=== PATIENT | male | born 1940 | race Caucasian/White ===

== ENCOUNTER → 2017-10-18 | Outpatient (CLI) | payer MEDICARE, BC ==
[~2017-10-18] MED LIST: Kristalose20 GM PO; LEVSOD125
[2017-10-18 17:13] LABS: BASOPHILS ABSOLUTE AUTO 0.03 K/mm3 (0.00-0.23); BASOPHILS PERCENT AUTO 0 % (0-2); EOSINOPHILS ABSOLUTE AUTO 0.03 K/mm3 (0.00-0.68); EOSINOPHILS PERCENT AUTO 0 % (0-6); Hematocrit 35.7 % (37.0-53.0); Hemoglobin 11.9 g/dL (13.5-17.5); IMMATURE GRAN ABSOLUTE AUTO 0.05 K/mm3 (0.00-0.10); IMMATURE GRAN PERCENT AUTO 0 % (0-1); LYMPHOCYTES ABSOLUTE AUTO 0.66 K/mm3 (0.84-5.20); LYMPHOCYTES PERCENT AUTO 4 % (21-46); MONOCYTES ABSOLUTE AUTO 0.94 K/mm3 (0.16-1.47); MONOCYTES PERCENT AUTO 6 % (4-13); Mean Corpuscular HGB 29.9 pg (26.0-34.0); Mean Corpuscular HGB Conc 33.3 g/dL (31.5-36.5); Mean Corpuscular Volume 90 fL (80-100); Mean Platelet Volume 10.3 fL (9.1-12.4); NEUTROPHILS ABSOLUTE AUTO 13.35 K/mm3 (1.96-9.15); NEUTROPHILS PERCENT AUTO 89 % (41-73); Platelet Count 229 K/mm3 (150-400); RDW Coefficient Variation 15.3 % (11.7-14.2); Red Blood Cell Count 3.98 M/mm3 (4.30-5.90); White Blood Cell Count 15.06 K/mm3 (4.00-11.30)
[2017-10-18 17:23] LABS: Albumin, Blood 3.9 g/dL (3.4-5.0); Bilirubin, Total 0.4 mg/dL (0.1-1.0); Calcium, Blood 8.7 mg/dL (8.5-10.1); Creatinine, Blood 1.22 mg/dL (0.60-1.20); Potassium, Blood 4.7 mmol/L (3.5-5.5); Total Protein, Blood 7.9 g/dL (6.4-8.2)
== END ==
LOC: LAB SHORT 17:08 → LAB EV 17:08
PROVIDERS: Physician Assistant
DX: K59.00 Constipation, unspecified (principal)
CPT/HCPCS: 80053; 85025

== ENCOUNTER 2017-10-22 09:01 | Emergency (ER) | payer MEDICARE, BC ==
[~2017-10-22] VITALS: Ht 177.8 cm; Wt 76.2 kg
[2017-10-22] MEDS ORDERED: LEVSOD125 (09:30)
[2017-10-22] MEDS ORDERED: Kristalose20 GM PO (09:56)
== END 2017-10-22 10:25 | disposition home or self-care (01) ==
LOC: ER 09:01
DX: K59.00 Constipation, unspecified (principal); Z79.899 Other long term (current) drug therapy; F41.9 Anxiety disorder, unspecified
CPT/HCPCS: 74018

== ENCOUNTER 2022-02-07 16:28 | Emergency (ER) | payer MEDICARE, BC ==
[~2022-02-07] VITALS: Ht 177.8 cm; Wt 77.1 kg
[2022-02-07] MEDS ORDERED: CYTOMEL25 MC2 PO (18:48)
== END 2022-02-07 20:14 | disposition home or self-care (01) ==
LOC: ER 16:28
DX: M25.552 Pain in left hip (principal); Z79.899 Other long term (current) drug therapy
CPT/HCPCS: 96372; 99282; J1885

== ENCOUNTER → 2022-02-18 | Outpatient (CLI) | payer MEDICARE, BC ==
[~2022-02-18] MED LIST changes: +CYTOMEL25 MC2 PO
[2022-02-18 16:24] LABS: BASOPHILS ABSOLUTE AUTO 0.02 K/mm3 (0.00-0.23); BASOPHILS PERCENT AUTO 0 % (0-2); EOSINOPHILS ABSOLUTE AUTO 0.04 K/mm3 (0.00-0.68); EOSINOPHILS PERCENT AUTO 1 % (0-6); Hematocrit 31.6 % (37.0-53.0); IMMATURE GRAN ABSOLUTE AUTO 0.01 K/mm3 (0.00-0.10); IMMATURE GRAN PERCENT AUTO 0 % (0-1); LYMPHOCYTES PERCENT AUTO 11 % (21-46); MONOCYTES ABSOLUTE AUTO 0.86 K/mm3 (0.16-1.47); MONOCYTES PERCENT AUTO 16 % (4-13); Mean Corpuscular HGB 31.5 pg (26.0-34.0); Mean Corpuscular HGB Conc 34.8 g/dL (31.5-36.5); Mean Corpuscular Volume 91 fL (80-100); Mean Platelet Volume 9.5 fL (9.1-12.4); NEUTROPHILS PERCENT AUTO 72 % (41-73); Platelet Count 276 K/mm3 (150-400); RDW Coefficient Variation 14.9 % (11.7-14.2); RDW Standard Deviation 49.3 fL (35.1-46.3); Red Blood Cell Count 3.49 M/mm3 (4.30-5.90); White Blood Cell Count 5.43 K/mm3 (4.00-11.30)
[2022-02-18 16:43] LABS: Albumin/Globulin Ratio 1.2 (0.8-1.8); Bilirubin, Total 0.5 mg/dL (0.1-1.0); Bun/Creatinine Ratio 26.6 (12.0-20.0); Calcium, Blood 9.1 mg/dL (8.5-10.1); Creatinine, Blood 0.79 mg/dL (0.60-1.20); Globulin, Blood 3.3 g/dL (2.2-4.0); Potassium, Blood 3.4 mmol/L (3.5-5.5); Total Protein, Blood 7.3 g/dL (6.4-8.2)
== END ==
LOC: LAB SHORT 16:13
PROVIDERS: Family Medicine
DX: R10.9 Unspecified abdominal pain (principal)
CPT/HCPCS: 80053; 83880; 85025

== ENCOUNTER → 2022-12-04 | Outpatient (CLI) | payer MEDICARE, BC | END | disposition home or self-care (01) | LOC: LAB SHORT 07:24 → PLD 07:24 | DX: J33.9 Nasal polyp, unspecified (principal); J34.89 Other specified disorders of nose and nasal sinuses | CPT/HCPCS: 88304 ==

== ENCOUNTER 2023-01-10 07:58 | Day surgery (SDC) | payer MEDICARE, BC ==
[~2023-01-10] VITALS: Ht 177.8 cm; Wt 72.3 kg
[2023-01-10] VITALS (12 sets, daily range): BP systolic 139–171; BP diastolic 73–87
--- NOTE | 2023-01-10 09:44 | NUR ---
History, Chart, Medications and Allergies reviewed before start of procedure.Patient confirms NPO status and agrees with scheduled surgery.PATIENT VERY ANXIOUS, LEFT HEARING AIDS IN PLACE AFTER DISCUSSING WITH CIRULATOR PT VERY CONCERNED OVER REMOVAL. Lungs clear T/O to Auscultation.
--- NOTE | 2023-01-10 10:44 | NUR ---
01/10/23 1044 Fanny Atwood EXISTING ABRASION NOTED TO LEFT SIDE OF NOSE UNDER EYE BEFORE START OF CASE.
--- NOTE | 2023-01-10 13:07 | NUR ---
Discharge instructions reviewed with patient. Patient verbalizes understanding. Copy given to patient to take home. GAUZE AND TAPE GIVEN TO PT AND HIS TO TAKE HOME TO USE FOR NASAL DRIP PAD. PT VOIDED PRIOR TO DISCHARGE. VSS. DENIES PAIN. Discharged via wheelchair to private car for ride home. NO BLEEDING NOTED TO DRIP PAD.
== END 2023-01-10 13:10 | disposition home or self-care (01) ==
LOC: ORSCMMR 07:58 → ORD 09:15 → ORSCMMR 13:10
PROVIDERS: Otolaryngology
PROC: 09JK8ZZ Inspection of Nasal Mucosa and Soft Tissue, Via Natural or Artificial Opening Endoscopic (ICD-10-PCS; principal; 2023-01-10 09:15)
DX: J33.9 Nasal polyp, unspecified (principal); J32.4 Chronic pansinusitis; J45.909 Unspecified asthma, uncomplicated; E03.9 Hypothyroidism, unspecified; Z79.899 Other long term (current) drug therapy
CPT/HCPCS: 36415; 86850; 86900; 86901; 87070; 87075; 87077; 87186; 87205; 88304; 88305; A9270; J0171; J0690; J1100; J2371; J2405; J2704; J3010; J3301; J7120

== ENCOUNTER 2023-04-25 16:41 | Inpatient (IN) | payer MEDICARE, BC ==
[~2023-04-25] VITALS: Ht 177.8 cm; Wt 70.3 kg
[2023-04-25] VITALS (19 sets, daily range): BP systolic 102–164; BP diastolic 40–83
[~2023-04-25 16:41] MED LIST changes: -LEVSOD125; +LEVSOD137 PO
--- NOTE | 2023-04-25 18:16 | NUR ---
04/25/231815 Reji Henry SPOKE WITH DR RUIZ BEFORE PROCEDURE REGARDING PT'S 3.1 POTASSIUM LEVEL AND THIS NOT BEING CHRONIC FOR THE PATIENT. OKAY TO PROCEDE PER DR RUIZ.
--- NOTE | 2023-04-25 18:18 | NUR ---
SHIFT SUMMARY PT A DIRECT ADMIT FROM [facility] THIS SHIFT AT 1640. HE IS AOX4 BUT VERY ANXIOUS THIS IS HIS FIRST VISIT TO THE HOSPITAL. FAMILY AT THE BS TO ASSIST WITH MEDICAL HISTORY AND MEDICATIONS. INCONTINENT OF BOWEL BUT NOT BLADDER, PER THE PT. BRIEF IN PLACE AND CHANGED NEEDED. HE IS SCHEDULED TO GO INTO SURGERY NOW, THE SURGICAL STAFF IS COMING UP TO GET HIM. HE HAS BEEN NPO. FAMILY IS INFORMED. CALL LIGHT WITHIN REACH, BED IN THE LOWEST POSITION. WILL REPORT TO ONCOMING NURSE.
[2023-04-26 03:43] VITALS: BP 147/78
[2023-04-26 08:02] VITALS: BP 143/74
[2023-04-26 11:43] LABS: BASOPHILS ABSOLUTE AUTO 0.03 K/mm3 (0.00-0.23); BASOPHILS PERCENT AUTO 0 % (0-2); EOSINOPHILS ABSOLUTE AUTO 0.01 K/mm3 (0.00-0.68); EOSINOPHILS PERCENT AUTO 0 % (0-6); Hematocrit 27.8 % (37.0-53.0); Hemoglobin 9.3 g/dL (13.5-17.5); IMMATURE GRAN ABSOLUTE AUTO 0.03 K/mm3 (0.00-0.10); IMMATURE GRAN PERCENT AUTO 0 % (0-1); LYMPHOCYTES ABSOLUTE AUTO 0.53 K/mm3 (0.84-5.20); LYMPHOCYTES PERCENT AUTO 7 % (21-46); MONOCYTES ABSOLUTE AUTO 0.78 K/mm3 (0.16-1.47); MONOCYTES PERCENT AUTO 10 % (4-13); Mean Corpuscular HGB 29.8 pg (26.0-34.0); Mean Corpuscular HGB Conc 33.5 g/dL (31.5-36.5); Mean Corpuscular Volume 89 fL (80-100); Mean Platelet Volume 10.1 fL (9.1-12.4); NEUTROPHILS PERCENT AUTO 82 % (41-73); Platelet Count 268 K/mm3 (150-400); RDW Coefficient Variation 17.1 % (11.7-14.2); RDW Standard Deviation 54.4 fL (35.1-46.3); Red Blood Cell Count 3.12 M/mm3 (4.30-5.90); White Blood Cell Count 7.68 K/mm3 (4.00-11.30)
[2023-04-26 12:06] LABS: Albumin/Globulin Ratio 1.1 (0.8-1.8); Bilirubin, Total 0.6 mg/dL (0.1-1.0); Bun/Creatinine Ratio 27.4 (12.0-20.0); Calcium, Blood 7.7 mg/dL (8.5-10.1); Creatinine, Blood 0.73 mg/dL (0.60-1.20); Globulin, Blood 2.8 g/dL (2.2-4.0); Potassium, Blood 2.9 mmol/L (3.5-5.5); Total Protein, Blood 5.8 g/dL (6.4-8.2)
[2023-04-26 16:18] VITALS: BP 150/72
--- NOTE | 2023-04-26 19:35 | NUR ---
SHIFT SUMMARY PATIENT CONTINUES TO BE WEAK AND ANXIOUS THROUGHOUT SHIFT. BOWEL MOVEMENTS HAVE BEEN LOOSE AND LIQUID BROWN WITH SMALL SEED LOOKING MASSES IN BM. BED IN LOW POSITION. CALL LIGHT IN REACH. PATIENT USES CALL LIGHT APPROPRIATELY.
[2023-04-26 19:36] VITALS: BP 157/70
[2023-04-27] VITALS (13 sets, daily range): BP systolic 147–174; BP diastolic 71–90
--- NOTE | 2023-04-27 02:23 | NUR ---
SHIFT SUMMERY. PT RESTING IN BED. PT VERY COOPERATIVE ABOUT DRNKING BOWEL PREP AND TAKING MEDS. PT UP TO BSC WITH SOME ASSIST FOR SAFETY. CALL LIGHT IN REACH . PT CALLS FOR NEEDS, A& O X 4.
[2023-04-27 05:54] LABS: BASOPHILS ABSOLUTE AUTO 0.03 K/mm3 (0.00-0.23); BASOPHILS PERCENT AUTO 0 % (0-2); EOSINOPHILS ABSOLUTE AUTO 0.08 K/mm3 (0.00-0.68); EOSINOPHILS PERCENT AUTO 1 % (0-6); Hematocrit 28.4 % (37.0-53.0); Hemoglobin 9.5 g/dL (13.5-17.5); IMMATURE GRAN ABSOLUTE AUTO 0.02 K/mm3 (0.00-0.10); IMMATURE GRAN PERCENT AUTO 0 % (0-1); LYMPHOCYTES ABSOLUTE AUTO 0.73 K/mm3 (0.84-5.20); LYMPHOCYTES PERCENT AUTO 11 % (21-46); MONOCYTES ABSOLUTE AUTO 0.98 K/mm3 (0.16-1.47); MONOCYTES PERCENT AUTO 14 % (4-13); Mean Corpuscular HGB 30.1 pg (26.0-34.0); Mean Corpuscular HGB Conc 33.5 g/dL (31.5-36.5); Mean Corpuscular Volume 90 fL (80-100); Mean Platelet Volume 10.2 fL (9.1-12.4); NEUTROPHILS ABSOLUTE AUTO 5.11 K/mm3 (1.96-9.15); NEUTROPHILS PERCENT AUTO 74 % (41-73); Platelet Count 265 K/mm3 (150-400); RDW Coefficient Variation 17.2 % (11.7-14.2); RDW Standard Deviation 55.2 fL (35.1-46.3); Red Blood Cell Count 3.16 M/mm3 (4.30-5.90); White Blood Cell Count 6.95 K/mm3 (4.00-11.30)
[2023-04-27 07:31] LABS: Bun/Creatinine Ratio 19.9 (12.0-20.0); Calcium, Blood 8.1 mg/dL (8.5-10.1); Creatinine, Blood 0.7 mg/dL (0.60-1.20)
[2023-04-27 07:32] LABS: Potassium, Blood 2.3 mmol/L (3.5-5.5)
[2023-04-27 14:09] LABS: Bun/Creatinine Ratio 22.4 (12.0-20.0); Calcium, Blood 8.1 mg/dL (8.5-10.1); Creatinine, Blood 0.58 mg/dL (0.60-1.20); Potassium, Blood 3.1 mmol/L (3.5-5.5)
--- NOTE | 2023-04-27 18:40 | NUR ---
PT HAS BEEN AOX4 AND COOPERATIVE OF CARE. 1 PERSON TO BEDSIDE COMMODE. ABLE TO MAKE NEEDS KNOWN. NPO ALL DAY. POTASSIUM WAS 2.[address] BAHENA AND DR CURTIS WERE NOTIFIED. MEDICATION WAS ADDED TO EMAR AND SURGERY WAS DELAYED UNTIL POTASSIUM LAB WAS UP TO 3.1. PT WAS THEN TAKEN TO SURGERY. REPORT WAS CALLED TO SURGICAL NURSE PT IS BEING MOVED TO RM 224.
--- NOTE | 2023-04-27 22:22 | NUR ---
PT ARRIVED TO ROOM 224 FROM POST OP RECOVERY. PT DROWSY, RESPONDS TO VERBAL STIMULI. VSS, SATS 91% ON RA. PT PAINFUL W/TX TO BED, MEDICATED W/2 MG MORPHINE. INCISIONS CDI, ABD SOFT TO PALP. BO PATANT DRNG YELLOW URINE, STAT LOCK IN PLACE. PT ORIENTED TO ROOM/CALL LIGHT. BED ALARM ON FOR SAFETY.
[2023-04-28 00:19] VITALS: BP 160/69
[2023-04-28 02:02] VITALS: BP 155/69
[2023-04-28 06:12] LABS: BASOPHILS ABSOLUTE AUTO 0.02 K/mm3 (0.00-0.23); BASOPHILS PERCENT AUTO 0 % (0-2); EOSINOPHILS PERCENT AUTO 0 % (0-6); Hematocrit 30.3 % (37.0-53.0); Hemoglobin 9.6 g/dL (13.5-17.5); IMMATURE GRAN ABSOLUTE AUTO 0.06 K/mm3 (0.00-0.10); IMMATURE GRAN PERCENT AUTO 1 % (0-1); LYMPHOCYTES ABSOLUTE AUTO 0.68 K/mm3 (0.84-5.20); LYMPHOCYTES PERCENT AUTO 5 % (21-46); MONOCYTES PERCENT AUTO 9 % (4-13); Mean Corpuscular HGB 28.9 pg (26.0-34.0); Mean Corpuscular HGB Conc 31.7 g/dL (31.5-36.5); Mean Corpuscular Volume 91 fL (80-100); Mean Platelet Volume 10.5 fL (9.1-12.4); NEUTROPHILS ABSOLUTE AUTO 11.11 K/mm3 (1.96-9.15); NEUTROPHILS PERCENT AUTO 85 % (41-73); Platelet Count 263 K/mm3 (150-400); RDW Coefficient Variation 17.3 % (11.7-14.2); RDW Standard Deviation 56.7 fL (35.1-46.3); Red Blood Cell Count 3.32 M/mm3 (4.30-5.90); White Blood Cell Count 13.07 K/mm3 (4.00-11.30)
[2023-04-28 06:40] LABS: Bun/Creatinine Ratio 20.2 (12.0-20.0); Calcium, Blood 8.2 mg/dL (8.5-10.1); Creatinine, Blood 0.74 mg/dL (0.60-1.20); Potassium, Blood 3.2 mmol/L (3.5-5.5)
[2023-04-28 07:28] VITALS: BP 145/60
--- NOTE | 2023-04-28 08:12 | NUR ---
POD 1 S/P SIGMOID COLECTOMY. PT VSS T/O NIGHT. SATS >90% ON 1L O2 NC. INCISIONS CDI, ABD SOFT TO PALP. BT HYPO, PT DENIED N/V, REP NO FLATUS YET. PAIN MGD W/2MG MORPHINE W/REP RELIEF. PT IS C/O R HIP PAIN THIS AM. PT REPOSITIONED TUTU T/O NIGHT. BO DRNG LIGHT YELLOW URINE. BEDSIDE REP GIVEN TO STEFANI TRIPLETT.
[2023-04-28 11:35] VITALS: BP 132/62
[2023-04-28 14:42] VITALS: BP 137/65
--- NOTE | 2023-04-28 16:40 | NUR ---
Upon receiving a referral for spiritual care, I visited the patient. He tells me about the surgery, about the events that led up to thesurgery and how his recovery is going currently. He talks about his family, the of his son and the struggles his has with her medical issues. We explore his raya journey from caodaism to [employer] and how his raya has come to mean much to him. I provide therapeutic listening and prayer. Patient respondfed well and showed signs of an elevated mood. I will luzma to jazlynian available to patient and family
[2023-04-28 19:19] VITALS: BP 136/52
--- NOTE | 2023-04-28 19:19 | NUR ---
SHIFT SUMMARY PT POD 1 SUNG L MOODY COLECTOMY. LAP SITES X'S 4 D/I. PT MEDICATED FOR PAIN ONCE WITH 5MG ROXICODONE WHOLE AND TYLENOL CRUSHED IN APPLESAUCE. TOLERATED CLEAR LIQUIDS WITH NO N/V AND ADVANCED TO FULLS. BO WAS DC'D IN AM, NO VOID. BLADDER SCAN AT 1855 166ML. DENIES FLATUS. UP TO CHAIR FOR 3 HOURS, TOLERATED WELL. DEMONSTRATED USE OF INCENTIVE SPIROMETER.
[2023-04-29 04:38] VITALS: BP 134/64
[2023-04-29 06:37] LABS: BASOPHILS ABSOLUTE AUTO 0.02 K/mm3 (0.00-0.23); BASOPHILS PERCENT AUTO 0 % (0-2); EOSINOPHILS ABSOLUTE AUTO 0.11 K/mm3 (0.00-0.68); EOSINOPHILS PERCENT AUTO 1 % (0-6); Hematocrit 27.4 % (37.0-53.0); IMMATURE GRAN ABSOLUTE AUTO 0.02 K/mm3 (0.00-0.10); IMMATURE GRAN PERCENT AUTO 0 % (0-1); LYMPHOCYTES ABSOLUTE AUTO 0.64 K/mm3 (0.84-5.20); LYMPHOCYTES PERCENT AUTO 8 % (21-46); MONOCYTES ABSOLUTE AUTO 0.91 K/mm3 (0.16-1.47); MONOCYTES PERCENT AUTO 11 % (4-13); Mean Corpuscular HGB Conc 32.8 g/dL (31.5-36.5); Mean Corpuscular Volume 91 fL (80-100); Mean Platelet Volume 10.3 fL (9.1-12.4); NEUTROPHILS ABSOLUTE AUTO 6.83 K/mm3 (1.96-9.15); NEUTROPHILS PERCENT AUTO 80 % (41-73); Platelet Count 241 K/mm3 (150-400); RDW Coefficient Variation 17.6 % (11.7-14.2); RDW Standard Deviation 58.1 fL (35.1-46.3); White Blood Cell Count 8.53 K/mm3 (4.00-11.30)
[2023-04-29 06:52] VITALS: BP 134/65
[2023-04-29 07:00] LABS: Bun/Creatinine Ratio 30.5 (12.0-20.0); Calcium, Blood 8.1 mg/dL (8.5-10.1); Creatinine, Blood 0.79 mg/dL (0.60-1.20); Magnesium, Blood 2.3 mg/dL (1.6-2.4); Potassium, Blood 3.1 mmol/L (3.5-5.5)
--- NOTE | 2023-04-29 07:32 | NUR ---
POD 2 S/P LAP COLECTOMY. PT VSS T/O NIGHT; SATS >90% ON RA. PT IS USNG I/S W/WEAK EFFORT. INCISIONS CDI, PAIN MGD W/TYLENOL AND WARM BLANKETS W/REP RELIEF; PT DECLINED ADDITIONAL PAIN MEDS. ABD APPEARS MORE DISTENDED THIS AM. BT ACTIVE, PT REP UNSURE IF PASSING FLATUS, DENIED N/V. PT TAKING MEDS CRUSHED W/APPLESAUCE. PT DRINKING WATER, IS VOIDING SMALL AMTS OF URINE. PT REPOSITIONED SELF IN BED. PLAN TO MOBILIZE PT TUTU.
--- NOTE | 2023-04-29 10:53 | NUR ---
PT ASSISTED TO STAND AND HAD A MOD AMOUNT RED MUCUS WITH FLATUS. NO ACTIVE BLEEDING PRESENT. PT DENIES ANY INCREASE IN PAIN. PT TO CHAIR, EDUCATED ON THE NEED TO BE UP TO CHAIR FOR ALL MEALS AND T/O DAY WELL USING INCENTIVE SPIROMETER T/O DAY WHILE AWAKE. TOLERATED ALL LARGER PILLS CRUSHED SMALLER WHOLE W/APPLESAUCE. PT DENIES NEED FOR PAIN MEDICATION AT THIS TIME.
[2023-04-29 15:09] VITALS: BP 117/48
--- NOTE | 2023-04-29 19:17 | NUR ---
SHIFT SUMMARY PT POD 2 LAP MOODY COLECTOMY. LAP SITES D/I, EXUDRY PLACED TO RLQ COVERING LARGER INCISION TO KEEP CLEAN AND DRY PER MD ORDER. PT TOLERATING FULL LIQUID T/O SHIFT W/NO N/V. REPORTS FLATUS. HAD 2 RED MUCUS BM'S. VOIDED X'S 2. PT MEDICATED WITH 50MG TORADOL ONCE AND SCHEDULED TYLENOL. PT UP TO CHAIR FOR APROX 7 HRS THIS SHIFT. UNABLE TO USE INCENTIVE SPIROMETER SO GIVEN FLUTTER VALVE, DEMONSTRATED USE.
[2023-04-29 19:55] VITALS: BP 126/67
[2023-04-30 04:33] VITALS: BP 123/66
[2023-04-30 05:32] LABS: BASOPHILS ABSOLUTE AUTO 0.04 K/mm3 (0.00-0.23); BASOPHILS PERCENT AUTO 1 % (0-2); EOSINOPHILS PERCENT AUTO 7 % (0-6); Hematocrit 26.6 % (37.0-53.0); Hemoglobin 8.6 g/dL (13.5-17.5); IMMATURE GRAN ABSOLUTE AUTO 0.03 K/mm3 (0.00-0.10); IMMATURE GRAN PERCENT AUTO 1 % (0-1); LYMPHOCYTES ABSOLUTE AUTO 0.79 K/mm3 (0.84-5.20); LYMPHOCYTES PERCENT AUTO 13 % (21-46); MONOCYTES ABSOLUTE AUTO 0.68 K/mm3 (0.16-1.47); MONOCYTES PERCENT AUTO 11 % (4-13); Mean Corpuscular HGB 29.7 pg (26.0-34.0); Mean Corpuscular HGB Conc 32.3 g/dL (31.5-36.5); Mean Corpuscular Volume 92 fL (80-100); Mean Platelet Volume 10.4 fL (9.1-12.4); NEUTROPHILS ABSOLUTE AUTO 4.02 K/mm3 (1.96-9.15); NEUTROPHILS PERCENT AUTO 67 % (41-73); Platelet Count 226 K/mm3 (150-400); RDW Coefficient Variation 17.6 % (11.7-14.2); RDW Standard Deviation 58.4 fL (35.1-46.3); White Blood Cell Count 5.96 K/mm3 (4.00-11.30)
[2023-04-30 06:21] LABS: Albumin, Blood 2.4 g/dL (3.4-5.0); Albumin/Globulin Ratio 0.8 (0.8-1.8); Bilirubin, Total 0.6 mg/dL (0.1-1.0); Bun/Creatinine Ratio 30.9 (12.0-20.0); Calcium, Blood 8.2 mg/dL (8.5-10.1); Creatinine, Blood 0.71 mg/dL (0.60-1.20); Globulin, Blood 3.1 g/dL (2.2-4.0); Potassium, Blood 3.5 mmol/L (3.5-5.5); Total Protein, Blood 5.5 g/dL (6.4-8.2)
[2023-04-30 07:19] VITALS: BP 127/69
--- NOTE | 2023-04-30 07:51 | NUR ---
POD 3 S/P COLECTOMY. PT VSS T/O NIGHT, SATS >90% ON RA. PT USING FLUTTER VALVE AT BEDSIDE, COUGH MORE LOOSE THIS AM. INCISIONS CDI, ABD PAD PLACED OVER RLQ INCISION. ABD MORE FIRM AND DISTENDED THIS AM, BT ACTIVE, PT REP NO FLATUS, DENIED N/V. PT TUTU PO FLUIDS, IS VOIDING URINE W/O DIFFIUCLTY. PAIN MGD PER EMAR W/REP RELIEF. PT UP OOB W/FWW+1 ASSIST, TO WELL. PLAN TO MOBILIZE W/PT TODAY.
--- NOTE | 2023-04-30 12:45 | NUR ---
NO NEW BLOODY BM'S SINCE 04/29. NO ORDER FOR LOVENOX AT THIS TIME, VERIFIED WITH DR. BROOKS.
[2023-04-30 14:57] VITALS: BP 126/61
[2023-04-30 18:15] VITALS: BP 131/59
--- NOTE | 2023-04-30 18:25 | NUR ---
SUMMARY: PT IS POD3 SIGMOID COLECTOMY. PT IS A/O, VSS. SURGICAL SITES WNL. PT ABLE TO AMBULATE IN HALLS TODAY AND WORKED WITH BOTH PT AND OT. PAIN APPEARS TO BE WELL MANAGED WITH TYLENOL. PT HAD BM TODAY AFTER GIVEN MIRALAX, IT WAS LARGE, BLOOD-TINGED MUCUS. THE SECOND BM HAD NO BLOOD AND WAS BROWN, PT IS PASSING GAS. FLUTTER VALVE AND I.S. ENCOURAGED, SP02 ABOVE 90% ON RA. PLAN IS TO ADVANCE DIET IN THE MORNING. NO ACUTE SAFETY CONCERNS.
[2023-05-01 00:38] VITALS: BP 118/57
--- NOTE | 2023-05-01 04:29 | NUR ---
SHIFT SUMMARY POD 4 SIGMOID CHOLECTOMY. NO ACUTE CHANGES OVERNIGHT. LAP SITE x4 C/D/I. TOLERATING ORALS, ANTICIPATED DIET ADVANCEMENT TO LOW FIBER THIS AM. AMBULATES USING FWW c SBA. VOIDS INDEPENDENTLY. 1 MUCUS BM THIS SHIFT, ASSISTED ATTENS CHANGE. LUNG SOUNDS DIMINISHED IN BILAT LOWER LOBES, PRODUCTIVE COUGH. PAIN MANAGED PER EMAR. CALL LIGHT WITHIN REACH, BED IN LOWEST POSITION, WILL REPORT TO DAY RN.
[2023-05-01 05:16] VITALS: BP 130/68
[2023-05-01 07:21] VITALS: BP 125/62
[2023-05-01] MEDS ORDERED: MIRALAX17 GM PO (13:24)
[2023-05-01] MEDS ORDERED: DOCU100 PO (13:24)
[2023-05-01] MEDS ORDERED: VISBIOME 112.51 EACH PO (13:25)
[2023-05-01] MEDS ORDERED: POTA20LUD PO (13:25)
[2023-05-01] MEDS ORDERED: TRAM50 PO (13:25)
[2023-05-01 14:28] VITALS: BP 123/62
== END 2023-05-01 14:43 | disposition home or self-care (01) | DRG 330 ==
LOC: MEDS 16:41 → SURS 04-26 14:16 → MEDS 04-26 14:16 → SURS 04-27 18:50
PROVIDERS: Internal Medicine; Surgery; ADMIT Internal Medicine
PROC: 0DJD8ZZ Inspection of Lower Intestinal Tract, Via Natural or Artificial Opening Endoscopic (ICD-10-PCS; 2023-04-25)
PROC: 8E0W4CZ Robotic Assisted Procedure of Trunk Region, Percutaneous Endoscopic Approach (ICD-10-PCS; 2023-04-27)
PROC: 0DBN4ZZ Excision of Sigmoid Colon, Percutaneous Endoscopic Approach (ICD-10-PCS; principal; 2023-04-27 16:30)
DX: K56.2 Volvulus (principal); D62 Acute posthemorrhagic anemia; I10 Essential (primary) hypertension; F41.1 Generalized anxiety disorder; E03.9 Hypothyroidism, unspecified; F32.A Depression, unspecified; E87.6 Hypokalemia; Z98.890 Other specified postprocedural states; Z79.890 Hormone replacement therapy; Z79.899 Other long term (current) drug therapy; Z87.891 Personal history of nicotine dependence
CPT/HCPCS: 36415; 80048; 80053; 83735; 84132; 85025; 86850; 86900; 86901; 88307; 94760; 96365; 96366; 96376; 97116; 97162; 97165; 97530; 97535; A9270; G0378; G0379; J1100; J1650; J2270; J2371; J2405; J2543; J2704; J3010; J3480; J7050; J7120

== ENCOUNTER → 2023-04-25 | Outpatient (CLI) | payer MEDICARE, BC ==
[2023-04-25 13:59] LABS: BASOPHILS ABSOLUTE AUTO 0.02 K/mm3 (0.00-0.23); BASOPHILS PERCENT AUTO 0 % (0-2); EOSINOPHILS ABSOLUTE AUTO 0.02 K/mm3 (0.00-0.68); EOSINOPHILS PERCENT AUTO 0 % (0-6); Hematocrit 30.1 % (37.0-53.0); Hemoglobin 10.1 g/dL (13.5-17.5); IMMATURE GRAN ABSOLUTE AUTO 0.01 K/mm3 (0.00-0.10); IMMATURE GRAN PERCENT AUTO 0 % (0-1); LYMPHOCYTES ABSOLUTE AUTO 0.77 K/mm3 (0.84-5.20); LYMPHOCYTES PERCENT AUTO 10 % (21-46); MONOCYTES ABSOLUTE AUTO 1.11 K/mm3 (0.16-1.47); MONOCYTES PERCENT AUTO 15 % (4-13); Mean Corpuscular HGB 30.1 pg (26.0-34.0); Mean Corpuscular HGB Conc 33.6 g/dL (31.5-36.5); Mean Corpuscular Volume 90 fL (80-100); Mean Platelet Volume 9.8 fL (9.1-12.4); NEUTROPHILS ABSOLUTE AUTO 5.44 K/mm3 (1.96-9.15); NEUTROPHILS PERCENT AUTO 74 % (41-73); Platelet Count 283 K/mm3 (150-400); RDW Standard Deviation 54.4 fL (35.1-46.3); Red Blood Cell Count 3.35 M/mm3 (4.30-5.90); White Blood Cell Count 7.37 K/mm3 (4.00-11.30)
[2023-04-25 14:10] LABS: Albumin, Blood 3.4 g/dL (3.4-5.0); Albumin/Globulin Ratio 1.1 (0.8-1.8); Bilirubin, Total 0.5 mg/dL (0.1-1.0); Bun/Creatinine Ratio 30.1 (12.0-20.0); Calcium, Blood 8.7 mg/dL (8.5-10.1); Creatinine, Blood 0.83 mg/dL (0.60-1.20); Globulin, Blood 3.2 g/dL (2.2-4.0); Potassium, Blood 3.1 mmol/L (3.5-5.5); Total Protein, Blood 6.6 g/dL (6.4-8.2)
== END ==
LOC: LAB 13:52 → LAB SHORT 13:52
PROVIDERS: Family Medicine
DX: K56.609 Unspecified intestinal obstruction, unspecified as to partial versus complete obstruction (principal)
CPT/HCPCS: 80053; 83605; 83690; 85025

== ENCOUNTER → 2024-12-17 | Outpatient (CLI) | payer MEDICARE ==
[~2024-12-17] MED LIST changes: +DOCU100 PO; +MIRALAX17 GM PO; +POTA20LUD PO; +TRAM50 PO; +VISBIOME 112.51 EACH PO
[2024-12-17 11:14] LABS: BASOPHILS ABSOLUTE AUTO 0.02 K/mm3 (0.00-0.23); BASOPHILS PERCENT AUTO 0 % (0-2); EOSINOPHILS ABSOLUTE AUTO 0.07 K/mm3 (0.00-0.68); EOSINOPHILS PERCENT AUTO 1 % (0-6); Hematocrit 27.6 % (37.0-53.0); Hemoglobin 8.9 g/dL (13.5-17.5); IMMATURE GRAN ABSOLUTE AUTO 0.02 K/mm3 (0.00-0.10); IMMATURE GRAN PERCENT AUTO 0 % (0-1); LYMPHOCYTES ABSOLUTE AUTO 0.72 K/mm3 (0.84-5.20); LYMPHOCYTES PERCENT AUTO 10 % (21-46); MONOCYTES ABSOLUTE AUTO 0.95 K/mm3 (0.16-1.47); MONOCYTES PERCENT AUTO 13 % (4-13); Mean Corpuscular HGB Conc 32.2 g/dL (31.5-36.5); Mean Corpuscular Volume 91 fL (80-100); NEUTROPHILS ABSOLUTE AUTO 5.66 K/mm3 (1.96-9.15); NEUTROPHILS PERCENT AUTO 76 % (41-73); NRBC ABSOLUTE 0.00 K/mm3 (0.00-0.02); NRBC Auto 0.0 /100 WBC (0.0-0.2); Platelet Count 300 K/mm3 (150-400); RDW Coefficient Variation 21.0 % (11.7-14.2); RDW Standard Deviation 70.2 fL (35.1-46.3)
[2024-12-17 11:48] LABS: Alanine Aminotransfer (ALT/SGP 26.0 U/L (12-78); Albumin, Blood 3.2 g/dL (3.4-5.0); Albumin/Globulin Ratio 0.8 (0.8-1.8); Anion Gap 9.0 mmol/L (3-11); Aspartate Aminotrans (AST/SGOT 17.0 U/L (12-37); Bilirubin, Total 0.4 mg/dL (0.1-1.0); Blood Urea Nitrogen 34.0 mg/dL (8-24); CO2, Blood 28.0 mmol/L (21-32); Calcium, Blood 8.9 mg/dL (8.5-10.1); Chloride, Blood 108.0 mmol/L (98-108); Creatinine, Blood 0.78 mg/dL (0.60-1.20); Globulin, Blood 3.8 g/dL (2.2-4.0); Glucose, Blood 107.0 mg/dL (70-99); Potassium, Blood 4.5 mmol/L (3.5-5.5); Sodium, Blood 140.0 mmol/L (136-145); Thyroid Stimulating Hormone 0.011 uIU/mL (0.360-4.800); Total Protein, Blood 7.0 g/dL (6.4-8.2)
== END | disposition home or self-care (01) ==
LOC: LAB 11:08 → LAB SHORT 11:08
PROVIDERS: Physician Assistant
DX: E03.9 Hypothyroidism, unspecified (principal); R22.43 Localized swelling, mass and lump, lower limb, bilateral
CPT/HCPCS: 80053; 83880; 84443; 85025

== ENCOUNTER 2025-03-15 02:00 | Day surgery (SDC) | payer MEDICARE, BC ==
[2025-03-15] MEDS ORDERED: Lidocaine HCl 4% Cream 5 GM ONE (10:54)
== END 2025-03-15 23:00 | disposition home or self-care (01) ==
LOC: WOUND 02:00
DX: L97.812 Non-pressure chronic ulcer of other part of right lower leg with fat layer exposed (principal); I73.9 Peripheral vascular disease, unspecified; I87.2 Venous insufficiency (chronic) (peripheral)
CPT/HCPCS: A9270; G0463

== ENCOUNTER 2025-03-21 04:09 | Day surgery (SDC) | payer MEDICARE, BC ==
[2025-03-21] MEDS ORDERED: Lidocaine HCl 4% Cream 5 GM ONE (10:58)
== END 2025-03-21 23:20 | disposition home or self-care (01) ==
LOC: WOUND 04:09
DX: L97.812 Non-pressure chronic ulcer of other part of right lower leg with fat layer exposed (principal); I87.2 Venous insufficiency (chronic) (peripheral); I73.9 Peripheral vascular disease, unspecified; I10 Essential (primary) hypertension
CPT/HCPCS: A9270; G0463

== ENCOUNTER 2025-03-28 01:05 | Day surgery (SDC) | payer MEDICARE, BC | END 2025-03-28 23:00 | disposition home or self-care (01) | LOC: WOUND 01:05 | DX: L97.812 Non-pressure chronic ulcer of other part of right lower leg with fat layer exposed (principal); L97.422 Non-pressure chronic ulcer of left heel and midfoot with fat layer exposed; I89.0 Lymphedema, not elsewhere classified; I87.2 Venous insufficiency (chronic) (peripheral); I73.9 Peripheral vascular disease, unspecified; I10 Essential (primary) hypertension; F03.90 Unspecified dementia, unspecified severity, without behavioral disturbance, psychotic disturbance, mood disturbance, and anxiety | CPT/HCPCS: G0463 ==

== ENCOUNTER 2025-04-04 09:16 | Day surgery (SDC) | payer MEDICARE, BC ==
[~2025-04-04] VITALS: Ht 175.3 cm; Wt 81.2 kg
[~2025-04-04 09:16] MED LIST changes: +EPINEPhrine HCl 1 MG / ML 30ML Vial ONE; +EUTHYROX125 MCG PO; -LEVSOD137 PO; +Lidocaine 2%-Epineph 1:200000 20 ML SDV ONE; +Oxymetazoline 0.05% Nasal Relief Spray 15mL BTL ONE
[2025-04-04] MEDS ORDERED: Rocuronium Bromide 10 MG/ML 5ML Injection IV ONE ×2 (09:25→11:26)
[2025-04-04] MEDS ORDERED: Sugammadex Sodium 200 MG/2ML SDV (100 MG/ML) ONE (09:25)
[2025-04-04] MEDS ORDERED: FentaNYL Citrate 50 MCG/ML 2 ML Injection ONE (09:25)
[2025-04-04] MEDS ORDERED: Dexamethasone Sod Phos 10 MG/ML 1ML VIAL ONE (09:26)
[2025-04-04] MEDS ORDERED: Ondansetron HCl 2 MG / ML 2ML Vial ONE (09:26)
[2025-04-04] MEDS ORDERED: Tranexamic Acid 100 ML IV ONE (09:32)
[2025-04-04] MEDS ORDERED: IRON18 M1 (09:46)
[2025-04-04] MEDS ORDERED: Naloxone HCl 0.4MG / ML 1ML Vial ONE (10:05)
[2025-04-04] MEDS ORDERED: Phenylephrine HCl 100 MCG/ML-NS 10MLSYR (1MG/10ML) ONE (10:44)
--- NOTE | 2025-04-04 10:49 | NUR ---
04/04/25 1049 Mily Osorio DELAY TO OR D/T ANESTHESIA REVIEWING PT'S ECHO. CHARGE NURSE CRISTINA HAD TO CALL PT TO GET THE ECHO, AND THE ECHO WAS FAXED OVER FOR TO REVIEW.
[2025-04-04] MEDS ORDERED: ePHEDrine Sulfate 50 MG/ML 1ML Injection ONE (11:08)
[2025-04-04] MEDS ORDERED: Labetalol HCL 5 MG/ML 4ML Injection (Single Dose) ONE (11:34)
--- NOTE | 2025-04-04 13:39 | NUR ---
04/04/25 Argenis Ayers CLOTHES, HEARING AIDES, GLASSES IN LOCKER.
[2025-04-04 14:10] VITALS: BP 126/71
== END 2025-04-04 14:08 | disposition home or self-care (01) ==
LOC: ORSCSDS 09:16
PROVIDERS: Otolaryngology
PROC: 09DQ4ZZ Extraction of Right Maxillary Sinus, Percutaneous Endoscopic Approach (ICD-10-PCS; principal; 2025-04-04 10:30)
PROC: 09DR4ZZ Extraction of Left Maxillary Sinus, Percutaneous Endoscopic Approach (ICD-10-PCS; principal; 2025-04-04 10:30)
DX: J32.8 Other chronic sinusitis (principal); J33.9 Nasal polyp, unspecified; E03.9 Hypothyroidism, unspecified; Z79.899 Other long term (current) drug therapy; I10 Essential (primary) hypertension; Z87.891 Personal history of nicotine dependence
CPT/HCPCS: 88304; 88305; A9270; C2625; J0165; J0461; J1100; J2312; J2371; J2405; J2704; J3010; J7120

== ENCOUNTER 2025-04-11 00:25 | Day surgery (SDC) | payer MEDICARE, BC ==
[~2025-04-11 00:25] MED LIST changes: -EPINEPhrine HCl 1 MG / ML 30ML Vial ONE; -EUTHYROX125 MCG PO; +IRON18 M1; +LEVSOD137 PO; -Lidocaine 2%-Epineph 1:200000 20 ML SDV ONE; -Oxymetazoline 0.05% Nasal Relief Spray 15mL BTL ONE
== END 2025-04-11 23:05 | disposition home or self-care (01) ==
LOC: WOUND 00:25
DX: L97.811 Non-pressure chronic ulcer of other part of right lower leg limited to breakdown of skin (principal); L97.421 Non-pressure chronic ulcer of left heel and midfoot limited to breakdown of skin; I89.0 Lymphedema, not elsewhere classified; I87.2 Venous insufficiency (chronic) (peripheral); I73.9 Peripheral vascular disease, unspecified; I10 Essential (primary) hypertension; F03.90 Unspecified dementia, unspecified severity, without behavioral disturbance, psychotic disturbance, mood disturbance, and anxiety
CPT/HCPCS: G0463

== ENCOUNTER → 2025-05-11 | Outpatient (CLI) | payer MEDICARE, BC ==
[~2025-05-11] MED LIST changes: +EUTHYROX125 MCG PO; -LEVSOD137 PO
[2025-05-12 13:54] LABS: Stool Occult Blood Guaiac 1 Neg (Neg)
== END ==
LOC: LAB SHORT 08:30 → LAB 08:30
PROVIDERS: Nurse Practitioner
DX: D50.0 Iron deficiency anemia secondary to blood loss (chronic) (principal)
CPT/HCPCS: 82270

== ENCOUNTER 2025-05-12 03:41 | Day surgery (SDC) | payer MEDICARE, BC ==
[2025-05-12] MEDS ORDERED: NS 250 ML IV SCH (06:00)
[2025-05-12 13:45] VITALS: BP 147/61
[2025-05-12 14:01] VITALS: BP 144/55
[2025-05-12 15:00] VITALS: BP 134/56
[2025-05-12 15:41] VITALS: BP 134/50
== END 2025-05-12 15:40 | disposition home or self-care (01) ==
LOC: ATC 03:41
DX: D50.0 Iron deficiency anemia secondary to blood loss (chronic) (principal); M19.90 Unspecified osteoarthritis, unspecified site; E03.9 Hypothyroidism, unspecified; Z87.891 Personal history of nicotine dependence
CPT/HCPCS: 36430; 86850; 86900; 86901; 86923; J7050; P9016

== ENCOUNTER → 2025-05-12 | Outpatient (CLI) | payer MEDICARE, BC ==
[2025-05-14 09:51] LABS: Stool Occult Blood Guaiac 1 Neg (Neg)
== END ==
LOC: LAB SHORT 20:00 → LAB 20:00
DX: D50.0 Iron deficiency anemia secondary to blood loss (chronic) (principal)
CPT/HCPCS: 82270